=== PATIENT | male | born 1965 | race Caucasian/White ===

== ENCOUNTER 2018-08-17 08:16 | Inpatient (IN) | payer OTHER ==
[~2018-08-17] VITALS: Ht 180.3 cm; Wt 153.8 kg
[2018-08-17] VITALS (7 sets, daily range): BP systolic 12–137; BP diastolic 58–77
[2018-08-17] MEDS ORDERED: LASIX 20 MG TAB20 MG PO (08:41)
[2018-08-17 08:46] LABS: ABSOLUTE BASOPHILS 0.1 thou/uL (0.0-0.2); ABSOLUTE EOSINOPHILS 0.3 thou/uL (0.0-0.7); ABSOLUTE LYMPHOCYTES 3.4 thou/uL (0.8-5.3); ABSOLUTE MONOCYTES 0.8 thou/uL (0.0-1.2); BASOPHILS 0.6 %; EOSINOPHILS 2.8 %; HEMOGLOBIN 14.6 gm/dL (14.0-18.0); LYMPHOCYTES 35.7 %; MCH 26.4 pg (26.0-34.0); MCHC 32.5 g/dL (28.0-37.0); MCV 81.3 fL (80.0-100.0); MONOCYTES 8.5 %; MPV 7.7 fl. (7.2-11.1); NUCLEATED RBCS 0 /100WBC; PLATELET COUNT* 385 thou/uL (150-400); POLYS 52.4 %; RBC 5.53 mil/uL (4.50-6.00); WBC 9.5 thou/uL (4.0-11.0)
[2018-08-17 09:00] LABS: APTT 30.8 Seconds (25.0-31.3); PROTIME 10.6 Seconds (9.20-11.50)
[2018-08-17] MEDS ORDERED: LASIX 40 MG TAB40 M2 PO (09:08)
[2018-08-17] MEDS ORDERED: ZYLOPRIM300 MG PO (09:08)
[2018-08-17] MEDS ORDERED: KLOR-CON 1010 MEQ PO (09:08)
[2018-08-17] MEDS ORDERED: LOSARTAN-HCTZ1 EAC1 PO (09:08)
[2018-08-17] MEDS ORDERED: XARELTO20 MG PO (09:09)
[2018-08-17] MEDS ORDERED: ZETIA10 MG PO (09:09)
[2018-08-17] MEDS ORDERED: FENOFIBRATE160 MG PO (09:09)
[2018-08-17] MEDS ORDERED: SYNTHROID300 MCG PO (09:09)
[2018-08-17] MEDS ORDERED: LABETALOL HCL100 MG PO (09:09)
[2018-08-17 09:16] LABS: ALBUMIN 3.8 g/dL (3.4-5.0); ALKALINE PHOSPHATASE 97 U/L (46-116); ANION GAP 15 mmol/L (7-16); BUN 20 mg/dL (7-18); CALCIUM 9.2 mg/dL (8.5-10.1); CHLORIDE 99 mmol/L (98-107); CHOLESTEROL 179 mg/dL (<200); CO2 24 mmol/L (21-32); CREATININE 1.8 mg/dL (0.6-1.3); GLUCOSE 264 mg/dL (70-99); HDL CHOLESTEROL 30 mg/dL (>40); LDL CHOLESTEROL 98 mg/dL (<100); MAGNESIUM 1.7 mg/dL (1.8-2.4); POTASSIUM 3.5 mmol/L (3.5-5.1); SGOT 56 U/L (15-37); SGPT 66 U/L (30-65); SODIUM 138 mmol/L (136-145); TOTAL BILIRUBIN 0.5 mg/dL (<0.1-1.0); TOTAL PROTEIN 8.1 g/dL (6.4-8.2); TRIGLYCERIDE 256 mg/dL (<150); TROPONIN-I LEVEL <0.06 ng/mL (<0.06); VLDL 51 mg/dL (<40)
[2018-08-17 09:19] LABS: SERUM ASSESSMENT Clear
--- NOTE | 2018-08-17 10:54 | EKG ---
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 : 1965 Requested By: Lai Zapata Order Number: [id number] MD: Zohaib Galeas Measurements Intervals [place] Rate: 102 P: 209 [place]: 56 QRS: -39 QRSD: 115 T: -15 QT: 436 QTc: 569 Interpretive Statements atrial fibrillation Nonspecific IVCD with LAD Probable inferior infarct, age indeterminate Probable septal infarct Baseline wander in lead(s) I,III,aVL,aVF,V3,V6 No previous ECG available for comparison Electronically Signed On 08-17-2018 10:53:57 CDT by Zohaib Galeas [email or web address] <ELECTRONICALLY SIGNED> By: Zohaib Galeas MD, FAC 08/17/18 1053 0828 0828 Zohaib Galeas MD, [facility] /EPI
--- NOTE | 2018-08-17 10:55 | EKG ---
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 : 1965 Requested By: Lai Zapata Order Number: [id number] Braulio MD: Zohaib Galeas Measurements Intervals [place] Rate: 90 P: 0 DC: 189 QRS: -40 QRSD: 106 T: 105 QT: 430 QTc: 527 Interpretive Statements atrial fibrillation Abnormal R-wave progression, late transition Inferior infarct, old Repol abnrm, severe global ischemia (LM/MVD) Prolonged QT interval Baseline wander in lead(s) V3 Electronically Signed On 08-17-2018 10:55:09 CDT by Zohaib Galeas [email or web address] <ELECTRONICALLY SIGNED> By: Zohaib Galeas MD, [facility] 08/17/18 1055 0837 0837 Zohaib Galeas MD, [facility] /EPI
--- NOTE | 2018-08-17 11:56 | NUR ---
RECIEVIED REPORT FROM BIPIN RN IN ER OF EXPECTED ADMISSION AT 0958- DX: UNSTABLE ANGINIA- PT ARRIVED TO ROOM 232 VIA CART AT 1015, SBA TO BED- CONCESSION ATTENDANT PLACED ORDERED, TRACING A-FIB- PT A&O X4- CONTINENT OF BOWEL AND BLADDER- UP AD-ELIEL IN ROOM, STEADY GAIT NOTED- LCTA, RESP EVEN AND UN-LABORED- VS 98.0 20 98/77 89, O2 SAT 92% ON RA- ABD OBESE/SOFT/NON-TENDER, BS X4 QUADS- PT REPORTS LAST BM 08/16/18- IV NOTED TO RIGHT HAND INTACT, IV HEPARIN INFUSSING PRESCIBED, APPT REDRAW SCHEDULED FOR 1400-PT REPORTS PRESSURE 2/10 TO MIDDLE CHEST, WORSE WITH INSPIRATION UPON ADMISSION- 2+ NON-PITTING EDEMA NOTED TO BLE, NOTED TO MORE PROMENENT TO LLE WITH 1+ PEDAL PULSE TO LLE AND 2+ TO RIGHT LLE- NOTIFIED WITH D-DIMER ORDERED- CARDIOLOGY CONSULTED WITH PLANS NOTED FOR CATH IN AM 08/18/18, IV DIG ORDERED WITH 1ST DOSE GIVEN PRESCIBED-SKIN C/D/I-CALL LIGHT AND PERSONAL BELONGINGS WITH IN REACH- HORURLY ROUNDS IN PLACE R/T SAFETY/NEEDS- ALL NEEDS MET AT THIS TIME-WCTM
[2018-08-18] VITALS (15 sets, daily range): BP systolic 119–134; BP diastolic 67–80
--- NOTE | 2018-08-18 05:04 | NUR ---
PT CARE ASSUMED AT 1930. SAT MAINTAINED IN 2L NC. ALERT AND ORIENTED X4. CALL LIGHT WITHIN REACH AND BED IN LOW POSITION. DENIES PAIN AND SOB. HEPARIN DRIP RUNNING. HOURLY ROUNDING DONE FOR PT SAFETY.
--- NOTE | 2018-08-18 09:53 | NUR ---
ASSUMED CARE OF PT THIS AM AROUND 0715- HAIR ASSISTANT IN PLACE ORDERED TRACING SA, WITH 1ST DEGREE- UPON ASSESSMENT PT NOTED TO BE RESTING IN BED, WATCHING TV- PT A&O X4- CONTINENT OF BOWEL AND BLADDER- UP AD-ELIEL IN ROOM, STEADY GAIT NOTED- LCTA, RESP EVEN AND UN-LABORED- VSS, O2 SAT 95% ON 2L VIA NC THIS AM- ABD SOFT/OBESE/NON-TENDER, BS X 4 QUADS- LAST BM REPORTED 08/17/18- IV NOTED TO RIGHT HAND INTACT, IVF ALONG WITH HEPARIN DRIP INFUSSING THIS AM PRESCRIBED-+2 NON-PITTING EDEMA NOTED TO BLE- PT CURRENTLY NPO FOR PLANNED CATH THIS AM-PT DENIES ANY C/O PAIN/DISCOMFORT THIS AM-PT TAKEN TO ENROBING MACHINE CORDER PER BED AT AROUND 0920 THIS SHIFT- ALL NEEDS MET- WCTM
--- NOTE | 2018-08-18 15:10 | EKG ---
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: : 1965 Requested By: Noman Lucero Order Number: [id number] Braulio MD: Zohaib Galeas Measurements Intervals [place] Rate: 70 P: 8 [place]: 226 QRS: 4 QRSD: 105 T: -4 QT: 436 QTc: 471 Interpretive Statements Sinus rhythm Prolonged [place] interval Borderline T abnormalities, inferior leads Compared to ECG 08/17/2018 08:37:37 First degree AV block now present T-wave abnormality now present Atrial fibrillation no longer present Early repolarization no longer present Possible ischemia no longer present Prolonged QT interval no longer present Electronically Signed On 08-18-2018 15:10:27 CDT by Zohaib Galeas [email or web address] <ELECTRONICALLY SIGNED> By: Zohaib Galeas MD, FACC 08/18/18 1510 1439 1439 Zohaib Galeas MD, FAC /EPI
--- NOTE | 2018-08-18 15:16 | EKG ---
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 : 1965 Requested By: Zohaib Galeas Order Number: [id number] Braulio MD: Zohaib Galeas Measurements Intervals [place] Rate: 60 P: 33 [place]: 232 QRS: 20 QRSD: 119 T: 94 QT: 447 QTc: 447 Interpretive Statements Sinus arrhythmia Prolonged [place] interval Nonspecific intraventricular conduction delay Inferior infarct, old Lateral leads are also involved Electronically Signed On 08-18-2018 15:16:03 CDT by Zohaib Galeas [email or web address] <ELECTRONICALLY SIGNED> By: Zohaib Galeas MD, [facility] 08/18/18 1516 0705 4 Zohaib Galeas MD, FACC /EPI
--- NOTE | 2018-08-18 16:19 | NUR ---
PT CURRENTLY RESTING IN BED, WATCHING TV- NUCLEAR RADIOLOGIST IN PLACE ORDERED, TRACING SR/SB WITH 1ST DEGREE THIS SHIFT- IV TO RIGHT HAND D/C'D THIS SHIFT R/T RIGHT WRIST CATH ACCESS, NEW 20GAUGE PLACE TO LEFT HAND, IVF CURRENTLY INFUSSING PRESCRIBED- PT OFF UNIT FOR CATH FROM AROUND [id number]- REPORT RECIEVIED FOR SOCORRO FOURNIER THAT RIGHT WRIST WAS ACCESSED WITH NO STENTS PLACED- RADIAL BAND IN PLACE WITH 7CC REPORTED TO BE PLACED- VS UPON RETURNING TO UNIT NOTED AT 97.6 18 122/76 65 93% ON RA- VS PER PROTOCOL INITIATED AND COMPLETED INDICATED- AIR RELASED PER VASC BAND ORDERD WITH COMPLETED REMOVAL AT 1400, AREA CLEANED WITH WW, PAT DRY WITH 4X4 PLACED AND COVERED WITH TRANSPARENT DRSG- LABETALOL, LASIX, DIG, HEPARIN DRIP, AND ASPIRIN NOTED TO BE D/C' POST CATH PER WITH LOSARTAN 25MG DAILY, AND SOTALOL 80MG BID STARTED WITH 1ST DOSES GIVEN PRESCIBED-PT DENIES ANY C/O PAIN/DISCOMFORT AT THIS TIME- PT MAKES NEEDS KNOWN- ALL NEEDS MET AT THIS TIME-WCTM
[2018-08-19 00:05] VITALS: BP 125/76
[2018-08-19 02:05] LABS: GLYCOHEMOGLOBIN (HGB A1C) 6.1 % (4.8-5.6)
[2018-08-19 04:00] VITALS: BP 117/72
--- NOTE | 2018-08-19 05:09 | NUR ---
PT CARE ASSUMED AT 1930. SAT MAINTAINED IN 2L NC FOR SLEEP APNEA. ALERT AND ORIENTED X4. CALL LIGHT WITHIN REACH AND BED IN LOW POSITION. CATH SITE C/D/I. C/O PAIN, MEDICATION GIVEN PER EMAR. HOURLY ROUNDING DONE FOR PT SAFETY.
[2018-08-19 05:44] LABS: CALCIUM 8.8 mg/dL (8.5-10.1); CREATININE 1.2 mg/dL (0.6-1.3)
[2018-08-19 09:30] VITALS: BP 140/91
--- NOTE | 2018-08-19 09:30 | NUR ---
REC'D REPORT FROM NOC RN, ASSUMED CARE OF PATIENT APPROX 0730. A&OX4, ABLE TO COMMUNICATE NEEDS TO STAFF. ASSESSMENT COMPLETE, VS OBTAINED. 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 O2 SAT: 98% RA. UP AD ELIEL WITH STEADY GAIT. CALL LIGHT IN REACH. HOURLY ROUNDING FOR SAFETY AND PT NEEDS.
[2018-08-19] MEDS ORDERED: SYNTHROID25 MC1 PO (11:08)
[2018-08-19 11:43] VITALS: BP 134/84
[2018-08-19] MEDS ORDERED: ASPIR 8181 MG PO (12:54)
[2018-08-19] MEDS ORDERED: SORINE 80 MG TA80 M1 PO (12:59)
[2018-08-19] MEDS ORDERED: LIPITOR 20 MG T20 M1 PO (13:00)
--- NOTE | 2018-08-19 13:00 | CARD ---
[address] [address] CARDIAC CATH REPORT Name: CADY WHITMAN Room: [address] IN M.R.#: [id number] Admission: 08/17/18 Attend Phys: Michael Buckley Discharge: Date of : 67 Report #: [id number] THIS REPORT FOR: //name// APPROVED REPORT Study performed: 08/18/2018 08:40:02 Patient Details Patient Status: In-Patient Room #: The patient is a 52 year-old male Event Personnel Zohaib Galeas Insurance Operations Rep, Daphney Jones RN RN, Nir CartagenaubEdwin Brittany RN Monitor Procedures Performed Left Heart Cath w/or w/o Coronaries [id number] [facility] Indication Non-STEMI , Dizziness and vertigo, Chest pain Risk Factors Hypercholesterolemia, Diabetes Procedure Narrative The patient was brought electively to the Cardiac Catheterization Laboratory and was prepped and draped in a sterile manner. The right wrist was infiltrated with 1% Lidocaine subcutaneous anesthesia. A Slender Glidesheath sheath was inserted into the right radial artery. Coronary angiography was performed using coronary diagnostic catheters. The right coronary system was accessed and visualized with a JR4 6fr catheter. The left coronary system was accessed and visualized with a JL4 6fr catheter. The left ventricle was accessed and visualized with a PC: Pig 6fr catheter. Left ventricular/Aortic Valve gradient assessed via catheter pullback. Left ventriculogram was performed in JUNG projection. Closure device was deployed with a 6 Fr vascband. The patient tolerated the procedure well and there were no complications associated with the procedure. There was no hematoma. Intraoperative Conscious Sedation Fentanyl 25 mcg Versed 2 mg Fluoro Time: 5.2 minutes Dose: DAP [id number] cGycm2 1686 [place] [address] CARDIAC CATH REPORT Name: AKASHCADY FLORES Room: [address] IN [facility]#: [id number] Admission: 08/17/18 Attend Phys: Michael Buckley Discharge: Date of : 67 Report #: [id number] Contrast Type and Amount: Visipaque 105 ml Coronary Angiography The patient's coronary anatomy is right dominant. [place] Artery Percent Stenosis Left Main: 0 % Prox LAD: 0 % Mid/Distal LAD: 0 % Circumflex: 30 % RCA: 30 % Ramus: % Left Ventriculography The left ventricular ejection fraction is estimated to be 50-55%. Left ventricular wall motion abnormalities are not present. There is no mitral insufficiency. Hemodynamics The aortic pressure is 115/69 mmHg with a mean of 90 mmHg. The left ventricular pressure is 108/10 mmHg with a mean of mmHg. The left ventricular end diastolic pressure is 11 mmHg. There was no gradient across the aortic valve upon pullback. Pullback from the left ventricle to the aorta revealed no gradient across the aortic valve. Conclusion 1. no significant cad 2. LVEF 50-55% Recommendations Aggressive Medical Therapy <ELECTRONICALLY SIGNED> By: Zohaib Galeas MD, FACC 08/19/18 1300 1300 1300Daquincy Galeas MD, FAC /INF
[2018-08-19 13:25] VITALS: BP 134/84
[2018-08-19] MEDS ORDERED: LEVOTHYROXINE PO (13:38)
--- NOTE | 2018-08-19 14:17 | NUR ---
Nutrition: Pt was busy in room at time of attempted visit. Pt is discahrging today. Admitted with unstable angina. Consult for DM. Pt has borderline DM, on no DM RX. On Heart Healthy diet order. BG 112, TG 256, alb 3.8, A1c 6.1%. PMHx: sleep apnea, OBE, HTN, non-STEMI. Wt: 339#. Mild nutrition risk.
--- NOTE | 2018-08-20 10:01 | EKG ---
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: : 1965 Requested By: Zohaib Galeas Order Number: [id number] Reading MD: Mane Giordano Measurements Intervals [place] Rate: 60 P: 12 [place]: 243 QRS: -1 QRSD: 123 T: 87 QT: 569 QTc: 569 Interpretive Statements Sinus rhythm Prolonged [place] interval Nonspecific intraventricular conduction delay Inferior infarct, old Lateral leads are also involved Compared to ECG 08/18/2018 07:05:48 Sinus arrhythmia no longer present Myocardial infarct finding still present Electronically Signed On 08-20-2018 10:01:29 CDT by Mane Giordano [email or web address] <ELECTRONICALLY SIGNED> By: Mane Giordano MD, FAC 08/20/18 1001 1638 1638 Mane Giordano MD, FAC /EPI
--- NOTE | 2018-08-20 10:03 | EKG ---
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 : 1965 Requested By: Zohaib Galeas Order Number: [id number] Reading MD: Mane Giordano Measurements Intervals [place] Rate: 78 P: -8 [place]: 216 QRS: 8 QRSD: 102 T: 52 QT: 386 QTc: 440 Interpretive Statements Sinus arrhythmia Prolonged [place] interval Inferior infarct, old Compared to ECG 08/18/2018 07:05:48 Intraventricular conduction delay no longer present Myocardial infarct finding still present Electronically Signed On 08-20-2018 10:03:37 CDT by Mane Giordano [email or web address] <ELECTRONICALLY SIGNED> By: Mane Giordano MD, [facility] 08/20/18 1003 0932 0932 Mane Giordano MD, [facility] /EPI
--- NOTE | 2018-08-20 16:17 | H ---
[address] [address] HISTORY AND PHYSICAL Name: AKASHCADY FLORES Room: [address] IN M.R.#: [id number] Admission: 08/17/18 Attend Phys: Michael Buckley Discharge: 08/19/18 Date of : 67 Report #: [id number] THIS REPORT FOR: //name// CC: Arturo Melendez DATE OF SERVICE: 08/17/2018 HISTORY OF PRESENT ILLNESS: The patient is a 52-year-old white male who I was asked to see in the Emergency Room today after he complained of chest pain. The patient states he has had no previous history of heart disease. He does have history of hypertension and hyperlipidemia. He apparently had a stress test in the past that was unremarkable. 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 He is also overweight, standing 5 feet 11 inches, weight 329 pounds. He has sleep apnea, uses CPAP. Apparently, last fall he developed swelling of his left leg and was found to have a blood clot that went to his lung. He has been on Xarelto since that time. His last Xarelto was 2 days ago. He has had no bleeding problems on Xarelto. Today, he was at the gym working out on his treadmill when became diaphoretic, lightheaded, had to sit down, felt his heart beating fast. He felt some discomfort in his chest. Paramedics were called. He was brought here to [place] on an emergent basis. I was asked to see him for further evaluation and treatment. At this time, his chest pain has improved. He denied the pain being related to food. He has had no coughing. PAST MEDICAL HISTORY: He has had no major surgical procedures. MEDICATIONS: Include amlodipine, Lipitor. He is on Xarelto. ALLERGIES: He has no known drug allergies. FAMILY HISTORY: Positive for heart disease. SOCIAL HISTORY: He is . He and his live in [place]. He quit smoking several years ago. Occasionally drinks alcohol. REVIEW OF SYSTEMS: He had no history of stroke, asthma, peptic ulcer disease, liver disease, kidney disease, cancer, psychiatric illness, chronic skin condition. PHYSICAL EXAMINATION: GENERAL: Revealed a large middle-aged male lying in stretcher, appeared in no acute distress. VITAL SIGNS: His blood pressure is only 90 systolic, pulse is 90, [place] [address] HISTORY AND PHYSICAL Name: CADY WHITMAN Room: [address]#: [id number] Admission: 08/17/18 Attend Phys: Michael Buckley Discharge: 08/19/18 Date of : 67 Report #: [id number] HEENT: He is anicteric. Conjunctivae pink. Mucous membranes moist. NECK: Veins do not appear distended. No carotid bruits heard. NECK: Supple. CHEST: Clear to auscultation. CARDIAC: Regular rate and rhythm. ABDOMEN: Obese. EXTREMITIES: Had trace edema. SKIN: Cool and dry. NEUROLOGIC: Nonfocal. RADIOLOGICAL DATA: His ECG shows a sinus rhythm with nonspecific ST-segment changes. His workup in the Emergency Room, he had a chest x-ray today that showed normal heart size and clear lung cassidy. LABORATORY DATA: Still pending, although his white blood cell count is 9.5, hemoglobin 14.6. IMPRESSION AND RECOMMENDATIONS: 1. Unstable angina. I would hold Xarelto. After 48 hours, I would then recommend cardiac catheterization. 2. Hypertension. The patient is on a calcium thania. 3. Hyperlipidemia. The patient is on a statin drug. 4. Obesity. 5. Sleep apnea. 6. History of pulmonary embolus. The patient has been on Xarelto. I would hold at this time. <ELECTRONICALLY SIGNED> By: Zohaib Galeas MD, FACC 08/20/18 1617 0917 [id number] Galeas MD, FACC /nt
== END 2018-08-19 14:51 | disposition home or self-care (01) | DRG 280 ==
LOC: M.ERS 08:16 → M.TBA-ER 09:27 → M.2W 09:27
PROVIDERS: Family Medicine; Internal Medicine Cardiovascular Disease; ADMIT Internal Medicine
PROC: 4A023N7 Measurement of Cardiac Sampling and Pressure, Left Heart, Percutaneous Approach (ICD-10-PCS; principal; 2018-08-18)
PROC: B2151ZZ Fluoroscopy of Left Heart using Low Osmolar Contrast (ICD-10-PCS; principal; 2018-08-18)
PROC: B2111ZZ Fluoroscopy of Multiple Coronary Arteries using Low Osmolar Contrast (ICD-10-PCS; principal; 2018-08-18)
DX: I21.4 Non-ST elevation (NSTEMI) myocardial infarction (principal); N17.0 Acute kidney failure with tubular necrosis; Z68.42 Body mass index [BMI] 45.0-49.9, adult; E66.9 Obesity, unspecified; I20.0 Unstable angina; I12.9 Hypertensive chronic kidney disease with stage 1 through stage 4 chronic kidney disease, or unspecified chronic kidney disease; N18.3 Chronic kidney disease, stage 3 (moderate); E03.9 Hypothyroidism, unspecified; E11.22 Type 2 diabetes mellitus with diabetic chronic kidney disease; E78.5 Hyperlipidemia, unspecified; G47.33 Obstructive sleep apnea (adult) (pediatric); Z86.718 Personal history of other venous thrombosis and embolism; Z86.711 Personal history of pulmonary embolism; Z79.899 Other long term (current) drug therapy